=== PATIENT | male | born 1935 | race Caucasian/White ===

== ENCOUNTER 2016-10-16 09:48 | Outpatient (CLI) | payer MEDICARE ==
[2016-10-16 10:52] LABS: Blood, Urine Large (Negative); Glucose, Urine (Dipstick) Negative (Negative); Ketone, Urine Negative (Negative); Nitrite Negative (Negative); Protein, Urine (Dipstick) > or equal to 300 mg/dL (Neg-Trace)
[2016-10-16 11:41] LABS: Bilirubin Negative (Negative)
[2016-10-16 11:42] LABS: Bacteria/HPF Rare-Few HPF (None Seen); RBC/HPF GREATER THAN 50-TNTC HPF (0-3); Squamous Epithelial None Seen HPF (0-3); WBC/HPF 0-3 HPF (0-3)
[2016-10-16 11:45] LABS: #Basophils 0.1 thou/uL (0.0-0.2); #Eosinphils 0.3 thou/uL (0.0-0.7); #Lymphocytes 1.7 thou/uL (1.20-3.40); #Monocytes 0.6 thou/uL (0.11-0.59); #Neutrophils 3.6 thou/uL (1.40-6.50); %Basophils 1.7 % (0.0-1.0); %Eosinophils 5.2 % (0.0-10.0); %Monocytes 9.2 % (0.0-10.0); Hematocrit 42.1 % (42.0-52.0); Mean Platelet Volume 5.4 fL (7.4-10.4); Red Blood Cell (RBC) Count 4.93 mill/uL (4.70-6.10); White Blood Cell (WBC) Count 6.3 thou/uL (4.8-10.8)
[2016-10-16 12:06] LABS: ALT (SGPT) 17 U/L (0-55); AST (SGOT) 17 U/L (5-34); Alkaline Phosphatase 87 U/L (40-150); Anion Gap 16 mmol/L (10-20); BUN (Urea Nitrogen) 31 mg/dL (8.4-25.7); Bilirubin, Total 0.6 mg/dL (0.2-1.2); Calc. Creatinine Clearance 0 mL/min (70-130); Calcium 9.6 mg/dL (7.8-10.44); Carbon Dioxide 23 mmol/L (23-31); Chloride 109 mmol/L (98-107); Estimated GFR-MDRD 27; Globulin 2.8 g/dL (2.4-3.5); LDL Cholesterol, Calculated 67 mg/dL; Protein, Total 6.9 g/dL (5.8-8.1)
== END 2016-10-16 09:49 | disposition home or self-care (01) ==
LOC: HPCALD 09:48
PROVIDERS: ATTEND Family Medicine
DX: Z12.5 Encounter for screening for malignant neoplasm of prostate (principal); I10 Essential (primary) hypertension; R31.9 Hematuria, unspecified; E78.5 Hyperlipidemia, unspecified
CPT/HCPCS: 36415; 80053; 80061; 81001; 85025; 87086; 88112; G0103

== ENCOUNTER 2017-03-30 11:47 | Outpatient (CLI) | payer MEDICARE | END 2017-03-30 11:48 | disposition home or self-care (01) | LOC: HPCALD 11:47 | PROVIDERS: ATTEND Family Medicine | DX: D49.2 Neoplasm of unspecified behavior of bone, soft tissue, and skin (principal) ==

== ENCOUNTER 2017-10-20 19:32 | Emergency (ER) | payer MEDICARE ==
[2017-10-20] MEDS ORDERED: Morphine 4 MG/ML Carpuject ONE (19:46)
[2017-10-20] MEDS ORDERED: Metoprolol Tartrate 5 MG/5 ML VIAL ONE (19:47)
[2017-10-20] MEDS ORDERED: Ondansetron HCl/PF 4 MG/2 ML Vial ONE (19:47)
[2017-10-20] MEDS ORDERED: Nitroglycerin 2% Ointment 1 INCH/1 GM Packet ONE (19:47)
[2017-10-20 20:02] LABS: Hemoglobin 13.8 g/dL (14.0-18.0); Mean Corpuscular HGB CONC 34.6 g/dL (32.0-36.0); Mean Corpuscular Hemoglobin 29.4 pg (27.0-31.0); Mean Corpuscular Volume 85.1 fl (80.0-94.0); PTT 29.2 SEC (22.9-36.1); Platelet Count 195 thou/uL (130-400); Prothrombin Time 13.3 SEC (12.0-14.7); RBC Distribution Width 12.5 % (11.5-14.5); Red Blood Cell (RBC) Count 4.69 mill/uL (4.70-6.10); White Blood Cell (WBC) Count 6.4 thou/uL (4.8-10.8)
[2017-10-20 20:11] LABS: ALT (SGPT) 14 U/L (8-55); AST (SGOT) 12 U/L (5-34); Albumin 4.1 g/dL (3.4-4.8); Alkaline Phosphatase 80 U/L (40-150); Anion Gap 17 mmol/L (10-20); BUN (Urea Nitrogen) 29 mg/dL (8.4-25.7); Bilirubin, Total 0.6 mg/dL (0.2-1.2); Calc. Creatinine Clearance 0 mL/min (70-130); Calcium 9.9 mg/dL (7.8-10.44); Carbon Dioxide 22 mmol/L (23-31); Chloride 106 mmol/L (98-107); Estimated GFR-MDRD 26; Globulin 3.1 g/dL (2.4-3.5); Glucose 120 mg/dL (83-110); Potassium 4.5 mmol/L (3.5-5.1); Protein, Total 7.2 g/dL (5.8-8.1); Sodium 140 mmol/L (136-145)
[2017-10-20 20:13] LABS: CKMB 0.8 ng/mL (0-6.6); Troponin I 0.018 ng/mL (< 0.028)
[2017-10-20 20:19] LABS: #Basophils 0.1 thou/uL (0.0-0.2); #Eosinphils 0.3 thou/uL (0.0-0.7); #Lymphocytes 1.8 thou/uL (1.20-3.40); #Monocytes 0.6 thou/uL (0.11-0.59); #Neutrophils 3.5 thou/uL (1.40-6.50); %Basophils 2.3 % (0.0-1.0); %Lymphocytes 28.6 % (21.0-51.0); %Neutrophils 55.1 % (42.0-75.0); Eosinophils 2 % (0-10); Lymphocytes 32 % (21-51); MDiff Complete? YES; Monocytes 6 % (0-10); Neutrophil 58 % (42-75); Reactive Lymphocytes 1 % (0-10)
[2017-10-20] MEDS ORDERED: Fentanyl 100 MCG/2 ML VIAL ONE (20:27)
--- NOTE | 2017-10-20 23:11 | RAD ---
PORTABLE CHEST 10/20/17 An AP portable film at 1941 is compared with an 05/26/16 study. Cardiomegaly is about the same as before. There is no pulmonary edema or gross congestion. The centra l pulmonary arteries are very large, typical in this patient and possibly related to pulmonary hypert ension. Some linear streaking in the left base may be scarring or atelectasis. No major lobar infiltr ate was seen. IMPRESSION: Cardiomegaly and chronic changes as listed above. No definite acute findings. POS: HOME
== END 2017-10-20 21:44 | disposition short-term general hospital (02) ==
LOC: BURERS 19:32
DX: R07.2 Precordial pain (principal); E78.5 Hyperlipidemia, unspecified; I10 Essential (primary) hypertension; I25.2 Old myocardial infarction; Z86.73 Personal history of transient ischemic attack (TIA), and cerebral infarction without residual deficits; F41.9 Anxiety disorder, unspecified; F32.9 Major depressive disorder, single episode, unspecified; Z79.899 Other long term (current) drug therapy
CPT/HCPCS: 71045; 80053; 82553; 83880; 84484; 85025; 85610; 85730; 93005; 94760; 96374; 96375; J2270; J2405; J3010

== ENCOUNTER 2019-03-23 14:38 | Emergency (ER) | payer MEDICARE ==
[2019-03-23 15:03] LABS: #Basophils 0.1 thou/uL (0.0-0.2); #Eosinphils 0.3 thou/uL (0.0-0.7); #Monocytes 0.6 thou/uL (0.11-0.59); #Neutrophils 3.8 thou/uL (1.40-6.50); %Basophils 1.9 % (0.0-1.0); %Eosinophils 3.9 % (0.0-10.0); %Lymphocytes 29.4 % (21.0-51.0); %Monocytes 8.6 % (0.0-10.0); %Neutrophils 56.2 % (42.0-75.0); Hemoglobin 12.7 g/dL (14.0-18.0); Mean Corpuscular HGB CONC 31.8 g/dL (32.0-36.0); Mean Corpuscular Hemoglobin 27.4 pg (27.0-31.0); Mean Platelet Volume 6.1 fL (7.4-10.4); Platelet Count 244 thou/uL (130-400); RBC Distribution Width 13.2 % (11.5-14.5); Red Blood Cell (RBC) Count 4.62 mill/uL (4.70-6.10); White Blood Cell (WBC) Count 6.8 thou/uL (4.8-10.8)
[2019-03-23 15:20] LABS: ALT (SGPT) 14 U/L (8-55); AST (SGOT) 13 U/L (5-34); Alkaline Phosphatase 98 U/L (40-150); Anion Gap 16 mmol/L (10-20); BUN (Urea Nitrogen) 40 mg/dL (8.4-25.7); Bilirubin, Total 0.3 mg/dL (0.2-1.2); Calc. Creatinine Clearance 0 mL/min (70-130); Calcium 9.6 mg/dL (7.8-10.44); Carbon Dioxide 22 mmol/L (23-31); Chloride 108 mmol/L (98-107); Estimated GFR-MDRD 21; Globulin 2.9 g/dL (2.4-3.5); Glucose 124 mg/dL (83-110); Lipase 28 U/L (8-78); Potassium 4.5 mmol/L (3.5-5.1); Protein, Total 6.9 g/dL (5.8-8.1); Sodium 141 mmol/L (136-145)
[2019-03-23] MEDS ORDERED: Fentanyl 100 MCG/2 ML VIAL ONE (15:46)
[2019-03-23] MEDS ORDERED: Enoxaparin Sodium 100 MG/ML SYRINGE ONE (16:32)
[2019-03-23] MEDS ORDERED: Aspirin Chewable 81 MG TAB ONE ×2 (16:32→16:39)
--- NOTE | 2019-03-23 16:56 | RAD ---
PORTABLE CHEST: 03/23/19 Comparison is made with a 10/20/17 study. Mild cardiomegaly is about the same as before. There is no overt congestive change. The central pulmo nary arteries are somewhat large but no different than previously. There are no effusions or lobar co nsolidations. IMPRESSION: Cardiomegaly but minimal change since 2018. POS: HOME
--- NOTE | 2019-03-23 16:58 | CT ---
CT OF THE BRAIN WITHOUT CONTRAST: 03/23/19 Comparison is made with the prior exam of 04/09/16. The ventricles are normal in size for age and atrophy. The occipital horn of the left lateral ventric le is a little more prominent than the right side, but this is a chronic finding in this patient and of no current importance. No intracranial bleeding or extra-axial hematoma was seen. There is no sig n of mass, edema, or stroke. IMPRESSION: Generalized atrophy and mild chronic ischemic change. Appearance no different than 2016 CT. POS: HOME
== END 2019-03-23 17:06 | disposition short-term general hospital (02) ==
LOC: BURERS 14:38
DX: R00.8 Other abnormalities of heart beat (principal); R79.1 Abnormal coagulation profile; R79.89 Other specified abnormal findings of blood chemistry; R00.1 Bradycardia, unspecified; I13.0 Hypertensive heart and chronic kidney disease with heart failure and stage 1 through stage 4 chronic kidney disease, or unspecified chronic kidney disease; I50.9 Heart failure, unspecified; N18.9 Chronic kidney disease, unspecified; F41.9 Anxiety disorder, unspecified; F32.9 Major depressive disorder, single episode, unspecified; Z79.899 Other long term (current) drug therapy
CPT/HCPCS: 70450; 71045; 80053; 83690; 83880; 84484; 85025; 85379; 93005; 94760; 96372; 96374; J1650; J3010

== ENCOUNTER → 2019-05-13 | Emergency (ER) | payer MEDICARE ==
[~2019-05-13] MED LIST: Morphine 4 MG/ML VIAL ONE; Nitroglycerin 0.4 MG TAB 1 EACH ONE; diphenhydrAMINE 50 MG/ML VIAL ONE
[2019-05-13 08:32] LABS: #Basophils 0.1 thou/uL (0.0-0.2); #Eosinphils 0.2 thou/uL (0.0-0.7); #Lymphocytes 1.6 thou/uL (1.20-3.40); #Monocytes 0.5 thou/uL (0.11-0.59); #Neutrophils 3.1 thou/uL (1.40-6.50); %Basophils 1.9 % (0.0-1.0); %Eosinophils 3.9 % (0.0-10.0); %Lymphocytes 28.5 % (21.0-51.0); %Monocytes 8.5 % (0.0-10.0); %Neutrophils 57.3 % (42.0-75.0); Hemoglobin 12.3 g/dL (14.0-18.0); Mean Corpuscular HGB CONC 31.7 g/dL (32.0-36.0); Mean Corpuscular Hemoglobin 27.4 pg (27.0-31.0); Mean Corpuscular Volume 86.3 fL (78.0-98.0); Platelet Count 228 thou/uL (130-400); RBC Distribution Width 13.2 % (11.5-14.5); Red Blood Cell (RBC) Count 4.48 mill/uL (4.70-6.10); White Blood Cell (WBC) Count 5.5 thou/uL (4.8-10.8)
[2019-05-13 08:46] LABS: ALT (SGPT) 10 U/L (8-55); AST (SGOT) 12 U/L (5-34); Albumin 4.1 g/dL (3.4-4.8); Alkaline Phosphatase 97 U/L (40-150); Anion Gap 16 mmol/L (10-20); BUN (Urea Nitrogen) 31 mg/dL (8.4-25.7); Bilirubin, Total 0.4 mg/dL (0.2-1.2); Calc. Creatinine Clearance 0 mL/min (70-130); Calcium 9.7 mg/dL (7.8-10.44); Carbon Dioxide 23 mmol/L (23-31); Chloride 109 mmol/L (98-107); Estimated GFR-MDRD 23; Globulin 3.1 g/dL (2.4-3.5); Glucose 98 mg/dL (83-110); Potassium 4.5 mmol/L (3.5-5.1); Protein, Total 7.2 g/dL (5.8-8.1); Sodium 143 mmol/L (136-145)
--- NOTE | 2019-05-13 08:47 | RAD ---
PORTABLE CHEST: History: Chest pain Comparison: 03-23-19 FINDINGS: Mild cardiomegaly with mild vascular engorgement again noted. No focal infiltrate or significant effu avel. IMPRESSION: No significant interval change. POS: [facility]
== END ==
LOC: BURERS 08:07
DX: R07.2 Precordial pain (principal); I10 Essential (primary) hypertension; E78.5 Hyperlipidemia, unspecified; Z86.73 Personal history of transient ischemic attack (TIA), and cerebral infarction without residual deficits; Z86.718 Personal history of other venous thrombosis and embolism; B40.0 Acute pulmonary blastomycosis; I50.9 Heart failure, unspecified; N18.9 Chronic kidney disease, unspecified; F41.9 Anxiety disorder, unspecified; F32.9 Major depressive disorder, single episode, unspecified; Z79.899 Other long term (current) drug therapy; Z79.01 Long term (current) use of anticoagulants
CPT/HCPCS: 36415; 71045; 80053; 83880; 84484; 85025; 85379; 93005; 94760; 96374; 96375; 96376; J1200; J2270

== ENCOUNTER 2020-05-05 13:34 | Emergency (ER) | payer MEDICARE ==
[2020-05-05] MEDS ORDERED: Aspirin Chewable 81 MG TAB ONE (14:06)
[2020-05-05] MEDS ORDERED: Nitroglycerin 0.4 MG TAB 1 EACH ONE (14:06)
[2020-05-05 14:13] LABS: #Basophils 0.1 thou/uL (0.0-0.2); #Eosinphils 0.3 thou/uL (0.0-0.7); #Lymphocytes 1.5 thou/uL (1.20-3.40); #Monocytes 0.6 thou/uL (0.11-0.59); #Neutrophils 3.6 thou/uL (1.40-6.50); %Basophils 1.9 % (0.0-1.0); %Eosinophils 4.9 % (0.0-10.0); %Lymphocytes 24.9 % (21.0-51.0); %Monocytes 9.1 % (0.0-10.0); %Neutrophils 59.3 % (42.0-75.0); Hemoglobin 10.6 g/dL (14.0-18.0); Mean Corpuscular HGB CONC 29.1 g/dL (32.0-36.0); Mean Corpuscular Hemoglobin 26.2 pg (27.0-31.0); Mean Corpuscular Volume 89.8 fL (78.0-98.0); Mean Platelet Volume 6.3 fL (7.4-10.4); Platelet Count 202 thou/uL (130-400); RBC Distribution Width 13.2 % (11.5-14.5); Red Blood Cell (RBC) Count 4.05 mill/uL (4.70-6.10); White Blood Cell (WBC) Count 6.1 thou/uL (4.8-10.8)
[2020-05-05 14:14] LABS: MDiff Complete? YES; Manual Diff?? NO
[2020-05-05 14:18] LABS: ALT (SGPT) 10 U/L (8-55); AST (SGOT) 12 U/L (5-34); Alkaline Phosphatase 72 U/L (40-110); Anion Gap 15 mmol/L (10-20); BUN (Urea Nitrogen) 50 mg/dL (8.4-25.7); Bilirubin, Total 0.4 mg/dL (0.2-1.2); Calc. Creatinine Clearance 0 mL/min (70-130); Calcium 9.2 mg/dL (7.8-10.44); Carbon Dioxide 24 mmol/L (23-31); Chloride 108 mmol/L (98-107); Estimated GFR-MDRD 15; Globulin 2.9 g/dL (2.4-3.5); Glucose 134 mg/dL (83-110); Potassium 4.5 mmol/L (3.5-5.1); Protein, Total 6.9 g/dL (5.8-8.1); Sodium 142 mmol/L (136-145)
--- NOTE | 2020-05-05 16:47 | RAD ---
PORTABLE CHEST 05/05/20 An AP portable film at 1402 is compared with an 05/13/19 study. The heart size is essentially the same. The aorta is ectatic as usual. The central pulmonary arteries are rather large suggesting that there may be an element of pulmonary arterial hypertension. They ar e similar to before. No effusion or lobar consolidation was seen. One could argue for some slight coa rsening of the basilar lung markings compared to before, but the significance of the finding is equiv ocal. Correlate with clinical symptoms. IMPRESSION: 1. Stable heart size. No congestive change. Presumed pulmonary arterial hypertension due to size of pulmonary arteries. 2. Overall appearance of the chest is similar to last year except questionable interstitial prom inence of some of the basilar markings. POS: HOME
== END 2020-05-05 15:05 | disposition short-term general hospital (02) ==
LOC: BURERS 13:34
DX: R07.9 Chest pain, unspecified (principal); I13.0 Hypertensive heart and chronic kidney disease with heart failure and stage 1 through stage 4 chronic kidney disease, or unspecified chronic kidney disease; I50.9 Heart failure, unspecified; N18.9 Chronic kidney disease, unspecified; G89.29 Other chronic pain; M54.2 Cervicalgia; N40.0 Benign prostatic hyperplasia without lower urinary tract symptoms; E78.5 Hyperlipidemia, unspecified; F41.9 Anxiety disorder, unspecified; F32.9 Major depressive disorder, single episode, unspecified; Z86.73 Personal history of transient ischemic attack (TIA), and cerebral infarction without residual deficits; Z86.718 Personal history of other venous thrombosis and embolism; Z85.46 Personal history of malignant neoplasm of prostate
CPT/HCPCS: 36415; 71045; 80053; 83880; 84484; 85025; 85379; 93005; 96360

== ENCOUNTER 2020-11-25 16:15 | Emergency (ER) | payer MEDICARE ==
--- NOTE | 2020-11-25 16:56 | RAD ---
Exam:Right ankle 3 views HISTORY: Pain and injury COMPARISON: None FINDINGS: Mild bony demineralization. There is soft swelling. Joint spaces are preserved. No acute fr acture. IMPRESSION: Soft tissue swelling. No acute fracture. There is mild bone demineralization.
--- NOTE | 2020-11-25 16:58 | RAD ---
Exam:Right foot 3 views HISTORY: Pain COMPARISON: None FINDINGS: Mild soft tissue swelling. Lisfranc alignment is maintained. Joint spaces are preserved. No fracture. Osteopenia. IMPRESSION: 1. Soft tissue swelling. Osteopenia. No fracture.
== END 2020-11-25 17:04 | disposition home or self-care (01) ==
LOC: BURERS 16:15
DX: S90.01XA Contusion of right ankle, initial encounter (principal); S90.31XA Contusion of right foot, initial encounter; I50.9 Heart failure, unspecified; N40.0 Benign prostatic hyperplasia without lower urinary tract symptoms; E78.5 Hyperlipidemia, unspecified; Z85.46 Personal history of malignant neoplasm of prostate; W22.8XXA Striking against or struck by other objects, initial encounter; Z86.718 Personal history of other venous thrombosis and embolism

== ENCOUNTER 2021-08-04 15:51 | Inpatient (IN) | payer MEDICARE ==
[2021-08-04 16:13] LABS: #Basophils 0.1 thou/uL (0.0-0.2); #Eosinphils 0.3 thou/uL (0.0-0.7); #Lymphocytes 1.4 thou/uL (1.20-3.40); #Monocytes 0.7 thou/uL (0.11-0.59); #Neutrophils 2.5 thou/uL (1.40-6.50); %Basophils 2.3 % (0.0-1.0); %Eosinophils 6.4 % (0.0-10.0); %Lymphocytes 27.6 % (21.0-51.0); %Neutrophils 49.6 % (42.0-75.0); Hemoglobin 9.5 g/dL (14.0-18.0); Mean Corpuscular HGB CONC 32.2 g/dL (32.0-36.0); Mean Corpuscular Hemoglobin 28.1 pg (27.0-31.0); Mean Corpuscular Volume 87.1 fL (78.0-98.0); Mean Platelet Volume 6.7 fL (7.4-10.4); Platelet Count 211 thou/uL (130-400); RBC Distribution Width 13.4 % (11.5-14.5); Red Blood Cell (RBC) Count 3.36 mill/uL (4.70-6.10); White Blood Cell (WBC) Count 4.9 thou/uL (4.8-10.8)
[2021-08-04 16:33] LABS: ALT (SGPT) 16 U/L (8-55); AST (SGOT) 20 U/L (5-34); Albumin 3.7 g/dL (3.4-4.8); Alkaline Phosphatase 58 U/L (40-110); Anion Gap 16 mmol/L (10-20); BUN (Urea Nitrogen) 69 mg/dL (8.4-25.7); Bilirubin, Total 0.3 mg/dL (0.2-1.2); Calc. Creatinine Clearance 0 mL/min (70-130); Calcium 8.9 mg/dL (7.8-10.44); Carbon Dioxide 17 mmol/L (23-31); Chloride 107 mmol/L (98-107); Glucose 114 mg/dL (83-110); Potassium 4.6 mmol/L (3.5-5.1); Protein, Total 6.7 g/dL (5.8-8.1); Sodium 135 mmol/L (136-145)
[2021-08-04] MEDS ORDERED: cefTRIAXone\\ROCEPHIN 2 GM VIAL ONE (17:12)
[2021-08-04] MEDS ORDERED: Sodium Chloride 0.9% 100 ML ONE (17:12)
[2021-08-04 17:19] LABS: Base Excess-Venous -7.9 mmol/L (-2.0 to 3.0); Bicarbonate (HCO3v) 17.1 mmol/L (22.0-28.0); CO2 Tension (PvCO2) 31.8 mmHg (42.0-51.0); Calcium, Ionized 1.11 mmol/L (1.15-1.33); Chloride 107 mmol/L (98-107); Hemoglobin - Calc 8.9 g/dL (14.0-18.0); Potassium 4.6 mmol/L (3.5-5.1); Sodium 134 mmol/L (138-145); T. Carbon Dioxide 18.1 mmol/L (22.0-28.0)
[2021-08-04 17:55] LABS: SARS-CoV-2 NAA Rapid Test Not Detected (NotDetected)
[2021-08-04] MEDS ORDERED: Albuterol Sulfate 1.25 MG/3 ML NEB ONE (18:07)
[2021-08-04] MEDS ORDERED: methylPREDNISolone Sod Succ/PF 125 MG/2 ML VIAL ONE (18:07)
[2021-08-04 19:44] VITALS: BMI 25.8
[2021-08-04] MEDS ORDERED: Ondansetron ODT 4 MG TAB SL PRN (20:15)
[2021-08-04] MEDS ORDERED: Ondansetron PF 4 MG/2 ML Vial IVP PRN (20:15)
[2021-08-04] MEDS ORDERED: Albuterol Sulfate 2.5 mg/3 ml Neb NEB PRN (20:17)
[2021-08-04 20:48] LABS: Bilirubin Negative (Negative); Blood, Urine Moderate (Negative); Clarity Cloudy (Clear); Glucose, Urine (Dipstick) Negative (Negative); Ketone, Urine Negative (Negative); Leukocyte Small (Negative); Nitrite Positive (Negative); Protein, Urine (Dipstick) > or equal to 300 mg/dL (Neg-Trace); Specific Gravity, Urine 1.015 (1.005-1.030); Urobilinogen 0.2 mg/dL (Less than 2); pH, Urine 7.5 (5.0-9.0)
[2021-08-04] MEDS: Dextrose 5 %-0.45 % NaCl 1,000 ML IV SCH (20:59)
[2021-08-04 21:01] LABS: Bacteria/HPF 2+ HPF (None Seen); Mucous/LPF 3+ LPF (<2+)
[2021-08-04] MEDS: Acetaminophen 325 MG TAB PO PRN (21:12)
[2021-08-05] MEDS: methylPREDNISolone Sod Succ 40 MG VIAL IVP SCH ×3 (01:29→18:27)
[2021-08-05] MEDS: Dextrose 5 %-0.45 % NaCl 1,000 ML IV SCH (05:42)
[2021-08-05] MEDS ORDERED: Bisacodyl 10 MG SUPP PR PRN (07:04)
[2021-08-05] MEDS ORDERED: traMADol HCl 50 MG TAB PO PRN (07:04)
[2021-08-05] MEDS ORDERED: Atorvastatin Calcium 10 MG TAB PO SCH (07:30)
[2021-08-05] MEDS ORDERED: Dextrose 5 %-0.45 % NaCl 1,000 ML IV SCH (07:30)
[2021-08-05] MEDS ORDERED: hydrALAZINE 25 MG TAB PO SCH (07:30)
[2021-08-05] MEDS ORDERED: Apixaban 2.5 MG TAB PO SCH (07:30)
[2021-08-05] MEDS ORDERED: Nitroglycerin 0.4 MG TAB (25 Tab Bottle) SL PRN (07:47)
[2021-08-05] MEDS: NIFEdipine XL 30 MG TAB PO SCH (08:05)
[2021-08-05] MEDS: Furosemide 20 MG TAB PO SCH (08:06)
[2021-08-05] MEDS ORDERED: FLU VACC QS2021-22(65YR UP)/PF 240 MCG/0.7 ML SYRINGE IM ONE (09:00)
[2021-08-05] MEDS: Acetaminophen 325 MG TAB PO PRN ×2 (09:19→20:47)
[2021-08-05] MEDS: hydrALAZINE 25 MG TAB PO SCH ×2 (16:40→20:42)
[2021-08-05] MEDS ORDERED: Cepastat Lozenges 1 LOZ PO PRN (17:09)
[2021-08-05] MEDS: Apixaban 2.5 MG TAB PO SCH (20:42)
[2021-08-06] MEDS: methylPREDNISolone Sod Succ 40 MG VIAL IVP SCH ×3 (01:40→18:17)
[2021-08-06 05:15] LABS: #Lymphocytes 0.4 thou/uL (1.20-3.40); #Monocytes 0.2 thou/uL (0.11-0.59); #Neutrophils 4.6 thou/uL (1.40-6.50); %Basophils 0.2 % (0.0-1.0); %Lymphocytes 7.5 % (21.0-51.0); %Monocytes 3.5 % (0.0-10.0); %Neutrophils 88.8 % (42.0-75.0); Hemoglobin 8.3 g/dL (14.0-18.0); Mean Corpuscular Hemoglobin 28.1 pg (27.0-31.0); Mean Corpuscular Volume 85.2 fL (78.0-98.0); Mean Platelet Volume 6.7 fL (7.4-10.4); Platelet Count 216 thou/uL (130-400); RBC Distribution Width 13.3 % (11.5-14.5); Red Blood Cell (RBC) Count 2.95 mill/uL (4.70-6.10); White Blood Cell (WBC) Count 5.2 thou/uL (4.8-10.8)
[2021-08-06 05:32] LABS: ALT (SGPT) 13 U/L (8-55); AST (SGOT) 13 U/L (5-34); Albumin 3.5 g/dL (3.4-4.8); Alkaline Phosphatase 52 U/L (40-110); Anion Gap 16 mmol/L (10-20); BUN (Urea Nitrogen) 74 mg/dL (8.4-25.7); Bilirubin, Total 0.3 mg/dL (0.2-1.2); Calc. Creatinine Clearance 12 mL/min (70-130); Calcium 8.7 mg/dL (7.8-10.44); Carbon Dioxide 17 mmol/L (23-31); Chloride 107 mmol/L (98-107); Globulin 2.1 g/dL (2.4-3.5); Glucose 178 mg/dL (83-110); Potassium 4.8 mmol/L (3.5-5.1); Protein, Total 5.6 g/dL (5.8-8.1); Sodium 135 mmol/L (136-145)
[2021-08-06] MEDS: NIFEdipine XL 30 MG TAB PO SCH (09:01)
[2021-08-06] MEDS: Furosemide 20 MG TAB PO SCH (09:01)
[2021-08-06] MEDS: hydrALAZINE 25 MG TAB PO SCH ×3 (09:02→20:21)
[2021-08-06] MEDS ORDERED: Finasteride 5 MG TAB PO SCH (10:30)
[2021-08-06] MEDS ORDERED: BICALUTAMIDE 50 MG TABLET PO SCH (10:30)
[2021-08-06] MEDS: Apixaban 2.5 MG TAB PO SCH ×2 (10:34→20:21)
[2021-08-06] MEDS: Bisacodyl 5 MG TAB PO PRN (13:55)
[2021-08-06] MEDS ORDERED: Atorvastatin Calcium 10 MG TAB PO SCH (21:00)
[2021-08-07] MEDS: methylPREDNISolone Sod Succ 40 MG VIAL IVP SCH ×3 (01:11→18:44)
[2021-08-07] MEDS: NIFEdipine XL 30 MG TAB PO SCH (08:40)
[2021-08-07] MEDS: hydrALAZINE 25 MG TAB PO SCH ×2 (08:41→16:21)
[2021-08-07] MEDS: Apixaban 2.5 MG TAB PO SCH (08:41)
[2021-08-07] MEDS: Furosemide 20 MG TAB PO SCH (08:42)
[2021-08-07] MEDS ORDERED: BICALUTAMIDE 50 MG TABLET PO SCH (09:00)
[2021-08-07] MEDS ORDERED: Finasteride 5 MG TAB PO SCH (09:00)
[2021-08-07] MEDS: Bisacodyl 5 MG TAB PO PRN (10:40)
[2021-08-07 17:59] VITALS: BP 138/71; TEMP 97.7
[2021-08-08] MEDS ORDERED: Bicalutamide 50 MG TAB PO SCH (09:00)
== END 2021-08-07 19:39 | disposition swing bed (61) | DRG 194 ==
LOC: BURERS 15:51 → BURMED 18:20
PROVIDERS: ADMIT Family Medicine; ATTEND Family Medicine
DX: J12.1 Respiratory syncytial virus pneumonia (principal); I50.32 Chronic diastolic (congestive) heart failure; I13.2 Hypertensive heart and chronic kidney disease with heart failure and with stage 5 chronic kidney disease, or end stage renal disease; N18.5 Chronic kidney disease, stage 5; I48.0 Paroxysmal atrial fibrillation; E78.5 Hyperlipidemia, unspecified; G47.33 Obstructive sleep apnea (adult) (pediatric); N40.0 Benign prostatic hyperplasia without lower urinary tract symptoms; E86.0 Dehydration; C61 Malignant neoplasm of prostate; C67.9 Malignant neoplasm of bladder, unspecified; Z66 Do not resuscitate; Z20.822 Contact with and (suspected) exposure to COVID-19; Z85.528 Personal history of other malignant neoplasm of kidney; Z86.73 Personal history of transient ischemic attack (TIA), and cerebral infarction without residual deficits; Z86.718 Personal history of other venous thrombosis and embolism; Z90.49 Acquired absence of other specified parts of digestive tract; Z79.899 Other long term (current) drug therapy
CPT/HCPCS: 0240U; 36415; 71045; 80053; 81001; 82330; 82803; 83605; 83880; 84484; 85025; 87040; 87807; 93005; 94640; 94760; J0696; J2405; J2920; J2930; J3490; J7042; J7620

== ENCOUNTER 2021-08-07 20:00 | Inpatient (IN) | payer MEDICARE ==
[2021-08-07 20:27] VITALS: BMI 25.7
[2021-08-07] MEDS ORDERED: Albuterol Sulfate 2.5 mg/3 ml Neb NEB PRN (20:53)
[2021-08-07] MEDS ORDERED: Bisacodyl 10 MG SUPP PR PRN (20:54)
[2021-08-07] MEDS ORDERED: Cepastat Lozenges 1 LOZ PO PRN (20:54)
[2021-08-07] MEDS ORDERED: Bisacodyl 5 MG TAB PO PRN (20:54)
[2021-08-07] MEDS ORDERED: Nitroglycerin 0.4 MG TAB (25 Tab Bottle) SL PRN (20:57)
[2021-08-07] MEDS ORDERED: traMADol HCl 50 MG TAB PO PRN (20:58)
[2021-08-07] MEDS: Apixaban 2.5 MG TAB PO SCH (21:28)
[2021-08-07] MEDS: Atorvastatin Calcium 10 MG TAB PO SCH (21:28)
[2021-08-07] MEDS: hydrALAZINE 25 MG TAB PO SCH (21:28)
[2021-08-08] MEDS: Acetaminophen 325 MG TAB PO PRN (01:10)
[2021-08-08] MEDS ORDERED: methylPREDNISolone Sod Succ 40 MG VIAL IVP SCH (02:00)
[2021-08-08] MEDS: NIFEdipine XL 30 MG TAB PO SCH (08:45)
[2021-08-08] MEDS: hydrALAZINE 25 MG TAB PO SCH ×3 (08:46→21:29)
[2021-08-08] MEDS: Apixaban 2.5 MG TAB PO SCH ×2 (08:47→21:31)
[2021-08-08] MEDS: Finasteride 5 MG TAB PO SCH (08:47)
[2021-08-08] MEDS: Furosemide 20 MG TAB PO SCH (08:48)
[2021-08-08] MEDS: Bicalutamide 50 MG TAB PO SCH (08:50)
[2021-08-08] MEDS: methylPREDNISolone Sod Succ 40 MG VIAL IVP SCH ×2 (10:43→18:15)
[2021-08-08] MEDS: Atorvastatin Calcium 10 MG TAB PO SCH (21:29)
[2021-08-09] MEDS: methylPREDNISolone Sod Succ 40 MG VIAL IVP SCH ×3 (01:02→17:03)
[2021-08-09] MEDS: hydrALAZINE 25 MG TAB PO SCH ×3 (08:12→21:01)
[2021-08-09] MEDS: Apixaban 2.5 MG TAB PO SCH ×2 (08:12→21:01)
[2021-08-09] MEDS: Finasteride 5 MG TAB PO SCH (08:13)
[2021-08-09] MEDS: Furosemide 20 MG TAB PO SCH (08:13)
[2021-08-09] MEDS: NIFEdipine XL 30 MG TAB PO SCH (08:13)
[2021-08-09] MEDS: Bicalutamide 50 MG TAB PO SCH (08:14)
[2021-08-09] MEDS: Acetaminophen 325 MG TAB PO PRN (21:02)
[2021-08-09] MEDS: Atorvastatin Calcium 10 MG TAB PO SCH (21:02)
[2021-08-10] MEDS: methylPREDNISolone Sod Succ 40 MG VIAL IVP SCH ×3 (01:03→18:43)
[2021-08-10 06:53] LABS: Hemoglobin 8.4 g/dL (14.0-18.0); Platelet Count 263 thou/uL (130-400)
[2021-08-10] MEDS: Bicalutamide 50 MG TAB PO SCH (09:04)
[2021-08-10] MEDS: hydrALAZINE 25 MG TAB PO SCH ×3 (09:05→21:43)
[2021-08-10] MEDS: Finasteride 5 MG TAB PO SCH (09:07)
[2021-08-10] MEDS: NIFEdipine XL 30 MG TAB PO SCH (09:07)
[2021-08-10] MEDS: Furosemide 20 MG TAB PO SCH (09:07)
[2021-08-10] MEDS: Apixaban 2.5 MG TAB PO SCH ×2 (09:07→21:42)
[2021-08-10] MEDS: Atorvastatin Calcium 10 MG TAB PO SCH (21:42)
[2021-08-11] MEDS: methylPREDNISolone Sod Succ 40 MG VIAL IVP SCH ×3 (01:28→17:42)
[2021-08-11] MEDS: Acetaminophen 325 MG TAB PO PRN ×2 (01:40→18:43)
[2021-08-11] MEDS: Furosemide 20 MG TAB PO SCH (09:07)
[2021-08-11] MEDS: NIFEdipine XL 30 MG TAB PO SCH (09:07)
[2021-08-11] MEDS: Finasteride 5 MG TAB PO SCH (09:07)
[2021-08-11] MEDS: Apixaban 2.5 MG TAB PO SCH ×2 (09:10→20:34)
[2021-08-11] MEDS: hydrALAZINE 25 MG TAB PO SCH ×3 (09:10→20:33)
[2021-08-11] MEDS: Bicalutamide 50 MG TAB PO SCH (09:10)
[2021-08-11] MEDS: Atorvastatin Calcium 10 MG TAB PO SCH (20:33)
[2021-08-12] MEDS: methylPREDNISolone Sod Succ 40 MG VIAL IVP SCH (01:33)
[2021-08-12] MEDS: Bicalutamide 50 MG TAB PO SCH (08:18)
[2021-08-12] MEDS: hydrALAZINE 25 MG TAB PO SCH ×3 (08:19→20:50)
[2021-08-12] MEDS: NIFEdipine XL 30 MG TAB PO SCH (08:19)
[2021-08-12] MEDS: Apixaban 2.5 MG TAB PO SCH ×2 (08:19→20:50)
[2021-08-12] MEDS: predniSONE 20 MG TAB PO SCH (08:19)
[2021-08-12] MEDS: Finasteride 5 MG TAB PO SCH (08:19)
[2021-08-12] MEDS: Furosemide 20 MG TAB PO SCH (08:19)
[2021-08-12] MEDS: Atorvastatin Calcium 10 MG TAB PO SCH (20:51)
[2021-08-13 04:35] VITALS: TEMP 98.1
[2021-08-13] MEDS: predniSONE 20 MG TAB PO SCH (08:31)
[2021-08-13] MEDS: Furosemide 20 MG TAB PO SCH (08:32)
[2021-08-13] MEDS: NIFEdipine XL 30 MG TAB PO SCH (08:32)
[2021-08-13] MEDS: hydrALAZINE 25 MG TAB PO SCH (08:32)
[2021-08-13] MEDS: Finasteride 5 MG TAB PO SCH (08:32)
[2021-08-13] MEDS: Apixaban 2.5 MG TAB PO SCH (08:32)
[2021-08-13 08:33] VITALS: BP 133/62
[2021-08-13] MEDS: Bicalutamide 50 MG TAB PO SCH (08:33)
== END 2021-08-13 09:46 | disposition home or self-care (01) | DRG 947 ==
LOC: BURMED 20:00
PROVIDERS: ADMIT Family Medicine; ATTEND Family Medicine
DX: R53.81 Other malaise (principal); J12.1 Respiratory syncytial virus pneumonia; Z66 Do not resuscitate; I50.32 Chronic diastolic (congestive) heart failure; N18.5 Chronic kidney disease, stage 5; I13.0 Hypertensive heart and chronic kidney disease with heart failure and stage 1 through stage 4 chronic kidney disease, or unspecified chronic kidney disease; D84.9 Immunodeficiency, unspecified; E86.0 Dehydration; I48.0 Paroxysmal atrial fibrillation; E78.5 Hyperlipidemia, unspecified; G47.33 Obstructive sleep apnea (adult) (pediatric); Z85.46 Personal history of malignant neoplasm of prostate; Z85.51 Personal history of malignant neoplasm of bladder; Z86.718 Personal history of other venous thrombosis and embolism; Z90.49 Acquired absence of other specified parts of digestive tract; Z90.79 Acquired absence of other genital organ(s); Z90.5 Acquired absence of kidney; Z88.8 Allergy status to other drugs, medicaments and biological substances; Z79.01 Long term (current) use of anticoagulants; Z79.899 Other long term (current) drug therapy
CPT/HCPCS: 85014; 85018; 85049; J2920; J7512; J7620

== ENCOUNTER 2022-04-27 19:37 | Emergency (ER) | payer OTHER ==
[2022-04-27 20:08] LABS: #Basophils 0.1 thou/uL (0.0-0.2); #Eosinphils 0.3 thou/uL (0.0-0.7); #Lymphocytes 1.6 thou/uL (1.20-3.40); #Monocytes 0.6 thou/uL (0.11-0.59); #Neutrophils 2.8 thou/uL (1.40-6.50); %Basophils 1.9 % (0.0-1.0); %Eosinophils 4.9 % (0.0-10.0); %Lymphocytes 30.1 % (21.0-51.0); %Monocytes 10.4 % (0.0-10.0); %Neutrophils 52.8 % (42.0-75.0); Hemoglobin 8.8 g/dL (14.0-18.0); Mean Corpuscular HGB CONC 32.8 g/dL (32.0-36.0); Mean Corpuscular Hemoglobin 28.4 pg (27.0-31.0); Mean Corpuscular Volume 86.4 fL (78.0-98.0); Mean Platelet Volume 6.3 fL (7.4-10.4); Platelet Count 208 thou/uL (130-400); RBC Distribution Width 13.9 % (11.5-14.5); Red Blood Cell (RBC) Count 3.09 mill/uL (4.70-6.10); White Blood Cell (WBC) Count 5.4 thou/uL (4.8-10.8)
[2022-04-27 20:12] LABS: INR-International Normal Ratio 1.7; Prothrombin Time 19.8 sec (12.0-14.7)
[2022-04-27 20:13] LABS: PTT 44.4 sec (22.9-36.1)
[2022-04-27 20:19] LABS: ALT (SGPT) Less than 7 U/L (8-55); AST (SGOT) 9 U/L (5-34); Albumin 3.9 g/dL (3.4-4.8); Alkaline Phosphatase 51 U/L (40-110); Anion Gap 16 mmol/L (10-20); BUN (Urea Nitrogen) 52 mg/dL (8.4-25.7); Bilirubin, Total 0.4 mg/dL (0.2-1.2); Calc. Creatinine Clearance 0 mL/min (70-130); Calcium 9.2 mg/dL (7.8-10.44); Carbon Dioxide 20 mmol/L (23-31); Chloride 108 mmol/L (98-107); Estimated GFR 8; Globulin 2.2 g/dL (2.4-3.5); Glucose 103 mg/dL (83-110); Protein, Total 6.1 g/dL (5.8-8.1); Sodium 139 mmol/L (136-145)
[2022-04-27 21:09] LABS: Bilirubin Small (Negative); Blood, Urine Large (Negative); Clarity Cloudy (Clear); Glucose, Urine (Dipstick) 100 mg/dL (Negative); Ketone, Urine Negative (Negative); Leukocyte Negative (Negative); Nitrite Negative (Negative); Protein, Urine (Dipstick) > or equal to 300 mg/dL (Neg-Trace); Urobilinogen 0.2 mg/dL (Less than 2)
[2022-04-27 21:18] LABS: RBC/HPF Greater than 50 HPF (0-3)
[2022-04-27 21:19] LABS: Bacteria/HPF Rare-Few HPF (None Seen); Mucous/LPF 2+ LPF (<2+); Squamous Epithelial 0-3 HPF (0-3); WBC/HPF 0-3 HPF (0-3)
== END 2022-04-27 22:54 | disposition home or self-care (01) ==
LOC: BURERS 19:37
DX: R33.9 Retention of urine, unspecified (principal); R31.0 Gross hematuria; M51.36 Other intervertebral disc degeneration, lumbar region; M43.16 Spondylolisthesis, lumbar region; E78.5 Hyperlipidemia, unspecified; I12.9 Hypertensive chronic kidney disease with stage 1 through stage 4 chronic kidney disease, or unspecified chronic kidney disease; N18.9 Chronic kidney disease, unspecified; Z86.718 Personal history of other venous thrombosis and embolism; Z86.73 Personal history of transient ischemic attack (TIA), and cerebral infarction without residual deficits; I25.2 Old myocardial infarction; Z79.899 Other long term (current) drug therapy
CPT/HCPCS: 51702; 72131; 74176; 80053; 81003; 81015; 85025; 85610; 85730

== ENCOUNTER 2022-10-02 14:57 | Outpatient (CLI) | payer OTHER | END 2022-10-02 14:58 | disposition home or self-care (01) | LOC: BURRAD 14:57 | PROVIDERS: ATTEND Nurse Practitioner Family | DX: M25.512 Pain in left shoulder (principal); M19.012 Primary osteoarthritis, left shoulder; M19.011 Primary osteoarthritis, right shoulder ==